=== PATIENT | male | born 1995 | race Caucasian/White ===

== ENCOUNTER 2022-05-03 07:02 | Emergency (ER) | payer BC ==
[~2022-05-03] VITALS: Ht 182.9 cm; Wt 83.9 kg
[2022-05-03 07:05] VITALS: BP 140/96
--- NOTE | 2022-05-03 07:05 | NUR ---
TO BED AMBULATORY
[2022-05-03] MEDS ORDERED: NACL 0.9% 1,000 ML IV ONE (07:15)
[2022-05-03] MEDS ORDERED: MORPHINE SULFATE 4 MG/ML SYR IVP ONE ×2 (07:15→07:45)
[2022-05-03] MEDS ORDERED: ONDANSETRON 4 MG/2 ML VIAL IVP ONE (07:15)
--- NOTE | 2022-05-03 07:29 | NUR ---
lab work collected and handed to lab engineer moise baker
[2022-05-03 07:31] LABS: BASOPHILS % (AUTO) 0.1 % (0.0-2.0); EOSINOPHILS % (AUTO) 0.1 % (0.0-4.0); HEMATOCRIT 47.8 % (36-52); HEMOGLOBIN 16.6 g/dL (12.0-18.0); LYMPHOCYTES # (AUTO) 1.5 K/uL (2.0-11.5); LYMPHOCYTES % (AUTO) 15.1 % (20.5-51.1); MEAN CORPUSCULAR HEMOGLOBIN 32 pg (27-31); MEAN CORPUSCULAR HGB CONC 35 g/dL (33-37); MEAN CORPUSCULAR VOLUME 92.3 fL (80-94); MONOCYTES # (AUTO) 0.7 K/uL (0.8-1.0); MONOCYTES % (AUTO) 7.3 % (1.7-9.3); NEUTROPHILS # (AUTO) 7.5 K/uL (1.8-7.7); NEUTROPHILS % (AUTO) 77.4 % (42.2-75.2); PLATELET COUNT (AUTO) 266 K/uL (140-450); RED BLOOD CELL COUNT(AUTO) 5.18 MIL/uL (4.20-6.10); RED CELL DISTRIBUTION WIDTH 12.3 % (11.6-13.7); WHITE BLOOD COUNT (AUTO) 9.7 K/uL (4.8-10.8)
--- NOTE | 2022-05-03 07:44 | NUR ---
26y male bib self due to non-radiating R sided heachache x2 days. Per patient the headache started monday AM, and has yet to resolve itself. Pt also experincing photophobia at this time. Speech is clear, GCS 15. Denies any CP, SOB, fever/chills. Skin is dry and intact. Pt is ambulatory with steady gait. pmh: denies nka
[2022-05-03 07:47] LABS: ALBUMIN 4.3 g/dL (3.4-5.0); ANION GAP 12.1 (8-16); CARBON DIOXIDE 27.4 mmol/L (21-32); CREATININE 1.2 mg/dL (0.6-1.3); POTASSIUM 3.5 mmol/L (3.5-5.1)
--- NOTE | 2022-05-03 07:56 | NUR ---
pt taken to ct via [facility]
--- NOTE | 2022-05-03 08:17 | NUR ---
pt returned to bed [address] [facility]
--- NOTE | 2022-05-03 08:30 | NUR ---
pt provided with ice pack bedside and placed on 6L oxygen Addendum: 05/03/22 at 1033 by [email or web address] PT PLACED ON 6L OXYGEN FOR COMFORT
--- NOTE | 2022-05-03 09:18 | NUR ---
PT STATED PAIN IS CURRENTLY 3/10 AND HEADACHE IS FEELING BETTER. VSS. PT AMBULATED TO RESTROOM WITH STEADY GAIT.
--- NOTE | 2022-05-03 10:33 | NUR ---
OXYGEN REMOVED AT THIS TIME TO DETERMINE PT STATUS
[2022-05-03] MEDS ORDERED: KETOROLAC 15 MG/ML VIAL IVP ONE (10:35)
[2022-05-03] MEDS ORDERED: HYDROcodone/APAP 5/325 MG 1 TAB TAB PO ONE (10:35)
--- NOTE | 2022-05-03 11:46 | NUR ---
Patient appears to be resting comfortably in bed. Vital Signs within normal limits. Respirations even and unlabored.
--- NOTE | 2022-05-03 11:46 | NUR ---
PT PROVIDED WITH ICE PACK FOR HEAD
[2022-05-03] MEDS ORDERED: NAPR-54 PO (12:01)
[2022-05-03] MEDS ORDERED: ACET-8386 PO (12:01)
[2022-05-03] MEDS ORDERED: IMI25 PO (12:26)
[2022-05-03 12:36] VITALS: BP 121/69
--- NOTE | 2022-05-03 12:36 | NUR ---
Patient discharged with v/s stable. Written and verbal after care instructions given and explained. Patient alert, oriented and verbalized understanding of instructions. Ambulatory with steady gait. All questions addressed prior to discharge. ID band removed. Patient advised to follow up with PMD. Rx of HYDROCODONE/ACETAMINOPHEN, IMITRX, AND NAPROXEN given. Patient educated on indication of medication including possible reaction and side effects. Opportunity to ask questions provided and answered.
== END 2022-05-03 12:36 | disposition home or self-care (01) ==
LOC: MED 07:02
DX: G44.009 Cluster headache syndrome, unspecified, not intractable (principal); Z20.822 Contact with and (suspected) exposure to COVID-19; Z79.899 Other long term (current) drug therapy
CPT/HCPCS: 36415; 70450; 70496; 70498; 80053; 85025; 87426; 96361; 96374; 96375; 96376; 99285; J1885; J2270; J2405; Q9967